=== PATIENT | female | born 1995 | race Caucasian/White ===

== ENCOUNTER 2019-04-03 09:10 | Emergency (ER) | payer SELFPAY ==
[~2019-04-03] VITALS: Ht 170.2 cm; Wt 59.0 kg
--- NOTE | 2019-04-03 09:18 | NUR ---
patient came in to the ER c/o severe abd cramps started this morning, PS 8/10. On room air, breathing evenly and unlabored. Kept comfortable, will continue to monitor accordingly. Dr. Mccoy at bedside for eval.
--- NOTE | 2019-04-03 09:21 | NUR ---
urine collected and sent to lab
[2019-04-03] MEDS ORDERED: KETOROLAC TROMETHAMINE INJ 30 MG/ML VIAL IV ONE (09:30)
[2019-04-03] MEDS ORDERED: KETOROLAC TROMETHAMINE INJ 30 MG/ML VIAL ONE (09:32)
[2019-04-03 09:33] LABS: BASOPHILS % (AUTO) 0.5 % (0.0-2.0); EOSINOPHILS % (AUTO) 3.6 % (0.0-6.0); HEMATOCRIT 38 % (33-45); HEMOGLOBIN 12.7 g/dL (11.5-14.8); LYMPHOCYTES % (AUTO) 22.4 % (20.0-44.0); MEAN CORPUSCULAR HGB CONC 33 g/dl (31.0-36.0); MEAN CORPUSCULAR VOLUME 80 fL (82-100); MONOCYTES # (AUTO) 0.5 /CMM (0.1-1.30); MONOCYTES % (AUTO) 10.8 % (2.0-12.0); NEUTROPHILS # (AUTO) 2.9 /CMM (1.8-8.9); NEUTROPHILS % (AUTO) 62.7 % (43.0-81.0); PLATELET COUNT (AUTO) 192 /CMM (150-450); RED BLOOD CELL COUNT(AUTO) 4.75 MIL/uL (4.0-5.2); WHITE BLOOD COUNT (AUTO) 4.6 K/uL (4.3-11.0)
[2019-04-03 09:40] LABS: CALCIUM, SERUM 8.4 mg/dL (8.5-10.1); CREATININE 0.7 mg/dL (0.6-1.3); POTASSIUM 3.7 mmol/L (3.5-5.1)
--- NOTE | 2019-04-03 09:41 | NUR ---
US TECH AT BEDSIDE
[2019-04-03 09:59] LABS: BILIRUBIN,DIRECT 0.1 mg/dL (0.0-0.2); BILIRUBIN,TOTAL 0.4 mg/dL (0.2-1.0); TOTAL PROTEIN, SERUM 7.1 g/dL (6.4-8.2)
--- NOTE | 2019-04-03 10:15 | NUR ---
IV removed. Catheter intact and site benign. Pressure and 4x4 applied to site. No bleeding noted.Patient discharged to home in stable condition. Written and verbal after care instructions given. Patient verbalizes understanding of instruction.
[2019-04-03 10:16] VITALS: BP 117/57
== END 2019-04-03 10:16 | disposition home or self-care (01) ==
LOC: ER 09:12
DX: N83.201 Unspecified ovarian cyst, right side (principal); J45.909 Unspecified asthma, uncomplicated
CPT/HCPCS: 36415; 76856; 80048; 80076; 84702; 85025; 96374; 99284; J1885

== ENCOUNTER 2019-04-03 22:17 | Emergency (ER) | payer SELFPAY ==
[~2019-04-03] VITALS: Ht 170.2 cm; Wt 59.4 kg
--- NOTE | 2019-04-03 22:40 | NUR ---
PRESENTED TO THE ER FOR EVALUATION OF HER ABD PAIN. PT WAS AT [facility] ER EARLIER THIS MORNING FOR THE SAME COMPLAINT WAS DIAGNOSED W/ OVARIAN CYST AND WAS SENT HOME W/ A PRISCRIPTION FOR PAIN MEDICINE. PER PT " TOOK THE PRESCRIBED MEDICATION W/ NO EFFECT"
[2019-04-03] MEDS ORDERED: HYDROCODONE/APAP 5/325MG 1 EACH TABLET ONE (23:00)
[2019-04-03] MEDS ORDERED: HYDROCODONE/APAP 5/325MG 1 EACH TABLET PO ONE (23:00)
--- NOTE | 2019-04-03 23:59 | NUR ---
US TECH AT THE BED SIDE
--- NOTE | 2019-04-04 02:32 | NUR ---
Patient discharged to home in stable condition. Written and verbal after care instructions given. Patient verbalizes understanding of instruction.
[2019-04-04 02:33] VITALS: BP 118/73
== END 2019-04-04 02:34 | disposition home or self-care (01) ==
LOC: ER 22:17
DX: R10.31 Right lower quadrant pain (principal); J45.909 Unspecified asthma, uncomplicated; Z32.02 Encounter for pregnancy test, result negative
CPT/HCPCS: 76700-TC; 76856-TC

== ENCOUNTER 2019-04-11 23:40 | Emergency (ER) | payer MEDICAID ==
[~2019-04-11] VITALS: Ht 167.6 cm; Wt 61.2 kg
--- NOTE | 2019-04-11 23:44 | NUR ---
BIB FMILY FOR C/O SOB. PMH OF ASTHMA. + WHEEZING BILAT. SATTING 98-99% ON R/A
--- NOTE | 2019-04-11 23:46 | NUR ---
AT THE BED SIDE
[2019-04-11] MEDS ORDERED: predniSONE 20 MG TABLET ONE (23:49)
[2019-04-12] MEDS ORDERED: IPRATROPIUM NEB FS 0.5 MG/2.5 ML AMPUL.NEB NEB ONE
[2019-04-12] MEDS ORDERED: predniSONE 20 MG TABLET PO ONE
[2019-04-12] MEDS ORDERED: ALBUTEROL FS 2.5 MG/3 ML VIAL.NEB CONTNEB ONE
[2019-04-12] MEDS ORDERED: ALBUTEROL FS 2.5 MG/3 ML VIAL.NEB ONE (00:04)
[2019-04-12] MEDS ORDERED: IPRATROPIUM NEB FS 0.5 MG/2.5 ML AMPUL.NEB ONE (00:04)
--- NOTE | 2019-04-12 00:05 | NUR ---
RT AT THE BED SIDE FOR BREATHING TX
--- NOTE | 2019-04-12 00:49 | NUR ---
SITTING IN BED AWAKE AND ALERT. REPORTED FEELING MUCH BETTER. NO SOB. ON ONGOING BREATHING TX. VSS. WILL CONT TO MONITOR,
--- NOTE | 2019-04-12 01:14 | NUR ---
IV removed. Catheter intact and site benign. Pressure and 4x4 applied to site. No bleeding noted.Patient discharged to home in stable condition. Rx and Written and verbal after care instructions given. Patient verbalizes understanding of instruction.
[2019-04-12 01:36] VITALS: BP 119/58
== END 2019-04-12 01:15 | disposition home or self-care (01) ==
LOC: ER 23:44
DX: J45.901 Unspecified asthma with (acute) exacerbation (principal)
CPT/HCPCS: 94644; 99285; J7512

== ENCOUNTER 2019-04-18 01:08 | Emergency (ER) | payer MEDICAID ==
[~2019-04-18] VITALS: Ht 170.2 cm; Wt 54.4 kg
--- NOTE | 2019-04-18 02:15 | NUR ---
BIB FRIEND FOR C/O BILATERAL FLANK PAIN. - DYSURIA, - HEMATURIA,AFEBRILE. WILL CONT TO MONITOR ,
[2019-04-18] MEDS ORDERED: oxyCODONE/APAP (5/325 MG) 1 UDTAB TABLET ONE (02:27)
[2019-04-18] MEDS ORDERED: ONDANSETRON 4 MG TAB.RAPDIS ONE (02:27)
[2019-04-18] MEDS: oxyCODONE/APAP (5/325 MG) 1 UDTAB TABLET PO ONE (02:30)
[2019-04-18] MEDS: ONDANSETRON 4 MG TAB.RAPDIS SL ONE (02:30)
[2019-04-18 02:33] LABS: APPEARANCE,URINE SL CLOUDY (CLEAR); BILIRUBIN,URINE NEGATIVE (NEGATIVE); BLOOD, URINE 1+ Ery/uL (NEGATIVE); COLOR,URINE YELLOW (YELLOW); KETONES,URINE NEGATIVE (NEGATIVE); LEUKOCYTE ESTERASE ,URINE NEGATIVE (NEGATIVE); NITRITE, URINE NEGATIVE (NEGATIVE); PROTEIN,URINE TRACE mg/dl (NEGATIVE); UGLUCOSE NEGATIVE (NEGATIVE); UROBILINOGEN,URINE 0.2 EU/dL (0.2)
[2019-04-18 03:01] LABS: BACTERIA,URINE Few /HPF (None Seen); RBC,URINE 0-2 /HPF (0-2); SQUAMOUS EPITHELIAL CELL,UR Moderate /HPF (None Seen)
[2019-04-18 03:30] VITALS: BP 114/72
--- NOTE | 2019-04-18 03:30 | NUR ---
Patient discharged to home in stable condition. Rx and Written and verbal after care instructions given. Patient verbalizes understanding of instruction.
== END 2019-04-18 03:32 | disposition home or self-care (01) ==
LOC: ER 01:12
DX: N39.0 Urinary tract infection, site not specified (principal); J45.909 Unspecified asthma, uncomplicated
CPT/HCPCS: 81001; 84703; 87086; 99283; Q0162; 81000-TC

== ENCOUNTER 2019-05-30 06:01 | Emergency (ER) | payer SELFPAY ==
[~2019-05-30] VITALS: Ht 172.7 cm; Wt 56.7 kg
[2019-05-30] MEDS ORDERED: KETOROLAC TROMETHAMINE INJ 30 MG/ML VIAL ONE (06:17)
--- NOTE | 2019-05-30 06:23 | NUR ---
BIBS FROM HOME. TO ER BED 176. AAOX4. NO RESP DISTRESS. AMBULATORY. C/O LOWER ABDOMINAL CRAMPING 2ND TO MENSTRUATION. PT REPORTS THAT SHE HAS BEEN HAVING PROGRESSIVELY GETTING WORST CRAMPING AND PAIN WHEN HAVING HER PERIODS. MD AT BEDSIDE FOR EVAL. ORDERS RECEIVED, NOTED AND CARRIED OUT.
[2019-05-30] MEDS ORDERED: KETOROLAC TROMETHAMINE INJ 60 MG/2 ML VIAL IM ONE (06:30)
[2019-05-30 06:52] VITALS: BP 116/72
--- NOTE | 2019-05-30 06:52 | NUR ---
Patient discharged to home in stable condition. Written and verbal after care instructions given. Patient verbalizes understanding of instruction. Pt ambulatory with a steady gait
== END 2019-05-30 06:53 | disposition home or self-care (01) ==
LOC: ER 06:01
DX: R10.2 Pelvic and perineal pain (principal); G89.29 Other chronic pain; J45.909 Unspecified asthma, uncomplicated
CPT/HCPCS: 96372; 99283; J1885

== ENCOUNTER 2019-06-20 16:59 | Emergency (ER) | payer SELFPAY ==
[~2019-06-20] VITALS: Ht 170.2 cm; Wt 56.7 kg
[2019-06-20] MEDS ORDERED: methylPREDNISolone SOD SUCC 125 MG/2ML VIAL IM ONE (18:00)
[2019-06-20] MEDS ORDERED: ACETAMINOPHEN ES 500 MG TABLET PO ONE (18:00)
[2019-06-20] MEDS ORDERED: IPRATROPIUM NEB FS 0.5 MG/2.5 ML AMPUL.NEB NEB ONE (18:00)
[2019-06-20] MEDS ORDERED: ALBUTEROL FS 2.5 MG/3 ML VIAL.NEB NEB ONE (18:00)
[2019-06-20] MEDS ORDERED: ACETAMINOPHEN ES 500 MG TABLET ONE (18:02)
[2019-06-20] MEDS ORDERED: methylPREDNISolone SOD SUCC 125 MG/2ML VIAL ONE (18:02)
[2019-06-20] MEDS ORDERED: IPRATROPIUM NEB FS 0.5 MG/2.5 ML AMPUL.NEB ONE (18:17)
[2019-06-20] MEDS ORDERED: ALBUTEROL FS 2.5 MG/3 ML VIAL.NEB ONE (18:17)
[2019-06-20 18:23] LABS: BASOPHILS % (AUTO) 0.9 % (0.0-2.0); EOSINOPHILS % (AUTO) 2.9 % (0.0-6.0); HEMATOCRIT 39 % (33-45); HEMOGLOBIN 12.8 g/dL (11.5-14.8); LYMPHOCYTES # (AUTO) 0.7 /CMM (0.8-4.8); LYMPHOCYTES % (AUTO) 15.8 % (20.0-44.0); MEAN CORPUSCULAR HGB CONC 33 g/dl (31.0-36.0); MEAN CORPUSCULAR VOLUME 77 fL (82-100); MONOCYTES # (AUTO) 0.6 /CMM (0.1-1.30); MONOCYTES % (AUTO) 14.2 % (2.0-12.0); NEUTROPHILS % (AUTO) 66.2 % (43.0-81.0); PLATELET COUNT (AUTO) 207 /CMM (150-450); RED BLOOD CELL COUNT(AUTO) 5.09 MIL/uL (4.0-5.2); WHITE BLOOD COUNT (AUTO) 4.5 K/uL (4.3-11.0)
[2019-06-20 18:38] LABS: CALCIUM, SERUM 8.7 mg/dL (8.5-10.1); CREATININE 0.7 mg/dL (0.6-1.3); POTASSIUM 3.5 mmol/L (3.5-5.1)
--- NOTE | 2019-06-20 18:40 | NUR ---
PT CAME IN TO ER WITH C/O OF COUGH AND CONGESTION.HX OF ASTHMA WITH C/O OF WORSENING IN RECENT MONTHS. AAOX4. PT BREATHING 98% 02 IN ROOM AIR. NO SOB. NOT IN ANY DISTRESS. WILL CONTINUE TO MONITOR.
[2019-06-20 19:31] VITALS: BP 119/69
--- NOTE | 2019-06-20 19:31 | NUR ---
Patient discharged to home in stable condition. Written and verbal after care instructions given. Patient verbalizes understanding of instruction.
== END 2019-06-20 19:32 | disposition home or self-care (01) ==
LOC: ER 17:02
DX: J40 Bronchitis, not specified as acute or chronic (principal); R94.31 Abnormal electrocardiogram [ECG] [EKG]
CPT/HCPCS: 36415; 71045; 80048; 85025; 93005; 94640; 96372; 99284; J2930

== ENCOUNTER 2019-07-17 00:41 | Emergency (ER) | payer SELFPAY ==
[~2019-07-17] VITALS: Ht 170.2 cm; Wt 59.0 kg
[2019-07-17] MEDS ORDERED: ALBUTEROL FS 2.5 MG/3 ML VIAL.NEB ONE (01:03)
[2019-07-17] MEDS ORDERED: IPRATROPIUM NEB FS 0.5 MG/2.5 ML AMPUL.NEB ONE (01:03)
[2019-07-17] MEDS ORDERED: METOCLOPRAMIDE HCL 10 MG/2 ML VIAL ONE (01:04)
[2019-07-17] MEDS ORDERED: methylPREDNISolone SOD SUCC 125 MG/2ML VIAL ONE (01:04)
[2019-07-17] MEDS: METOCLOPRAMIDE HCL 10 MG/2 ML VIAL IV ONE (01:12)
[2019-07-17] MEDS: methylPREDNISolone SOD SUCC 125 MG/2ML VIAL IV ONE (01:12)
[2019-07-17] MEDS: ALBUTEROL FS 2.5 MG/3 ML VIAL.NEB NEB ONE (01:14)
[2019-07-17] MEDS: IPRATROPIUM NEB FS 0.5 MG/2.5 ML AMPUL.NEB NEB ONE (01:14)
--- NOTE | 2019-07-17 02:07 | NUR ---
Patient discharged to home in stable condition. Written and verbal after care instructions given. Patient verbalizes understanding of instruction.
[2019-07-17 02:08] VITALS: BP 132/90
== END 2019-07-17 02:08 | disposition home or self-care (01) ==
LOC: ER 00:43
DX: J45.909 Unspecified asthma, uncomplicated (principal); R06.6 Hiccough
CPT/HCPCS: 94640; 96374; 96375; 99283; J2765; J2930

== ENCOUNTER 2019-11-28 23:47 | Emergency (ER) | payer SELFPAY ==
[~2019-11-28] VITALS: Ht 170.2 cm; Wt 59.0 kg
[2019-11-28 23:54] VITALS: BP 123/71
[2019-11-29] MEDS ORDERED: LIDOCAINE VISCOUS 2% UD 15 ML UDC MM ONE
[2019-11-29] MEDS ORDERED: MAG HYDROX/AL HYDROX/SIMETH 30 ML UDC PO ONE
[2019-11-29] MEDS ORDERED: METOCLOPRAMIDE HCL 10 MG/2 ML VIAL IM ONE
[2019-11-29] MEDS ORDERED: METOCLOPRAMIDE HCL 10 MG/2 ML VIAL ONE (00:01)
[2019-11-29] MEDS ORDERED: MAG HYDROX/AL HYDROX/SIMETH 30 ML UDC ONE (00:01)
[2019-11-29] MEDS ORDERED: LIDOCAINE VISCOUS 2% UD 15 ML UDC ONE (00:01)
== END 2019-11-29 00:53 | disposition home or self-care (01) ==
LOC: ER 23:49
DX: R06.6 Hiccough (principal); J45.909 Unspecified asthma, uncomplicated
CPT/HCPCS: 96372; 99283; J2765

== ENCOUNTER 2021-12-04 22:16 | Emergency (ER) | payer SELFPAY ==
[~2021-12-04] VITALS: Ht 172.7 cm; Wt 56.7 kg
--- NOTE | 2021-12-04 23:24 | NUR ---
BIBSELF C/O LUQ ABD PAIN RAD TO RLQ X 1 WEEK, VOMITED TODAY AFTER EATING. TAKEN TO ER BED 16
[2021-12-04] MEDS ORDERED: MINERAL OIL 133 ML (PYXIS) 1 EA ENEMA RC ONE (23:52)
[2021-12-04] MEDS ORDERED: POLY17PO4 PO (23:54)
[2021-12-04] MEDS ORDERED: MAGN296S72 PO (23:54)
[2021-12-04] MEDS ORDERED: DOCU-141 PO (23:54)
[2021-12-05] MEDS ORDERED: MINERAL OIL 133 ML (PYXIS) 1 EA ENEMA RC ONE
--- NOTE | 2021-12-05 00:11 | NUR ---
PT FELT URGE FOR BOWEL MOVEMENT, AMBULATED TO BATHROOM. STEADY GAIT NOTED
[2021-12-05] MEDS ORDERED: MAGNESIUM CITRATE 296 ML BOTTLE ONE (00:24)
--- NOTE | 2021-12-05 00:27 | NUR ---
Patient discharged to home in stable condition. Written and verbal after care instructions given. Patient verbalizes understanding of instruction.
[2021-12-05 00:29] VITALS: BP 132/70
[2021-12-05] MEDS ORDERED: MAGNESIUM CITRATE 296 ML BOTTLE PO ONE (00:30)
== END 2021-12-05 00:29 | disposition home or self-care (01) ==
LOC: ER 22:26
DX: K59.00 Constipation, unspecified (principal); J45.909 Unspecified asthma, uncomplicated; Z79.899 Other long term (current) drug therapy
CPT/HCPCS: 74018

== ENCOUNTER 2021-12-13 03:09 | Emergency (ER) | payer SELFPAY ==
[~2021-12-13] VITALS: Ht 170.2 cm; Wt 56.7 kg
[~2021-12-13 03:09] MED LIST: DOCU-141 PO; MAGN296S72 PO; POLY17PO4 PO
[2021-12-13] MEDS ORDERED: KETOROLAC TROMETHAMINE INJ 30 MG/ML VIAL ONE (03:41)
--- NOTE | 2021-12-13 03:44 | NUR ---
PATIENT BIBSELF C/O R SIDED CP RAD TO RIGHT NECK AND JAW X 1 DAY. PATIENT IS A/O X 4 RR EVEN AND UNLABORED NO SOB NOTED. PATIENT TAKEN TO ER BED 10. PATIENT CONNECTED TO [employer] AND POX. WILL CONTINUE TO MONITOR.
--- NOTE | 2021-12-13 03:45 | NUR ---
BLOOD WORK SENT TO LAB
[2021-12-13] MEDS ORDERED: KETOROLAC TROMETHAMINE INJ 30 MG/ML VIAL IV ONE (04:00)
--- NOTE | 2021-12-13 04:00 | NUR ---
Pt waiver signed
[2021-12-13 04:02] LABS: BASOPHILS % (AUTO) 0.8 % (0.0-2.0); EOSINOPHILS % (AUTO) 3.3 % (0.0-6.0); HEMATOCRIT 37 % (33-45); HEMOGLOBIN 12.1 g/dL (11.5-14.8); LYMPHOCYTES # (AUTO) 0.7 K/uL (0.8-4.8); LYMPHOCYTES % (AUTO) 20.6 % (20.0-44.0); MEAN CORPUSCULAR HGB CONC 32 g/dl (31.0-36.0); MEAN CORPUSCULAR VOLUME 76 fL (82-100); MONOCYTES # (AUTO) 0.3 K/uL (0.1-1.30); NEUTROPHILS # (AUTO) 2.3 K/uL (1.8-8.9); NEUTROPHILS % (AUTO) 67.3 % (43.0-81.0); PLATELET COUNT (AUTO) 260 K/uL (150-450); RED BLOOD CELL COUNT(AUTO) 4.94 MIL/uL (4.0-5.2); WHITE BLOOD COUNT (AUTO) 3.4 K/uL (4.3-11.0)
[2021-12-13 04:13] LABS: CALCIUM, SERUM 8.8 mg/dL (8.5-10.1); CARBON DIOXIDE 31 mmol/L (21-32); CHLORIDE 105 mmol/L (98-107); CREATININE 0.7 mg/dL (0.6-1.3); GLUCOSE 96 mg/dL (74-106); POTASSIUM 3.2 mmol/L (3.5-5.1); SODIUM SERUM 141 mmol/L (136-145); UREA NITROGEN, BLOOD 4 mg/dL (7-18)
[2021-12-13 04:19] LABS: ALANINE AMINOTRANSFERASE 23 U/L (12-78); ALKALINE PHOSPHATASE 84 U/L (46-116); ASPARTATE AMINOTRANSFERASE 15 U/L (15-37); BILIRUBIN,DIRECT 0.1 mg/dL (0.0-0.2); BILIRUBIN,TOTAL 0.3 mg/dL (0.2-1.0); TOTAL PROTEIN, SERUM 7.8 g/dL (6.4-8.2)
[2021-12-13 04:33] LABS: D-DIMER 0.19 mg/L(FEU (0.17-0.50)
[2021-12-13 04:57] VITALS: BP 123/77
--- NOTE | 2021-12-13 04:57 | NUR ---
Patient discharged to home in stable condition. Written and verbal after care instructions given. Patient verbalizes understanding of instruction.
== END 2021-12-13 04:57 | disposition home or self-care (01) ==
LOC: ER 03:13
DX: R07.89 Other chest pain (principal); J45.909 Unspecified asthma, uncomplicated; Z79.899 Other long term (current) drug therapy
CPT/HCPCS: 36415; 71045; 80048; 80076; 84484; 85025; 85378; 85730; 93005; 96374; 99285; J1885